=== PATIENT | male | born 1995 | race Caucasian/White ===

== ENCOUNTER 2016-07-05 10:15 | Inpatient (IN) ==
[2016-07-05] MEDS ORDERED: ONDANSETRON 4 MG/2 ML VIAL IV STA (10:29)
[2016-07-05] MEDS ORDERED: SODIUM CHLORIDE 0.9% 1,000 ML IV STA (10:29)
[2016-07-05] MEDS ORDERED: KETOROLAC 30 MG/1 ML VIAL IV STA (10:29)
--- NOTE | 2016-07-05 10:32 | Emergency Department Note ---
Jose Jama Meredith, am scribing for, and in the presence of, Steven Mendoza MD 10:29. Reji Jama Robert M, MD, personally performed the services described in this documentation, ascribed by Kristi Garcia in my presence, and it is both accurate and complete . Arrival - Arrival Chief Complaint: Abdominal / Flank Pain Stated Complaint: abdominal pain ED Nursing Triage Note: Brought in per EMS from home with c/o generalized abdominal pain onset 2 days ago. Describes as sharp. +nausea/vomiting. Last bowel movement 3 days ago. Mode of Arrival: Stretcher Limitations: No Limitations Source: Patient, RN Notes Reviewed - History of Present Illness HPI Narrative: Pt is a 20 y/o white male brought to the ED by EMS with c/o generalized abdominal pain for the past 2 days. He describes the pain as sharp. Pt confirms nausea and vomiting. His last bowel movement was 3 days ago. Pt has not history of abdominal surgeries. Onset (ago): day(s) Consistency: intermittent Quality: sharp Allergies/Adverse Reactions: Allergies Allergy/AdvReac Type Severity Reaction Status Date / Time No Known Allergies Allergy Verified 07/05/16 10:23 Home Medications: Home Medications Medication Instructions Recorded Confirmed Type No Known Home Medications [No 07/05/16 07/05/16 History Known Home Medications] Review of System - Review of System 12 point system: reviewed and no additional remarkable complaints except as stated - Review of System Gastrointestinal: Present: as per HPI, abdominal pain, nausea, vomiting, constipation Medical,Surgical,& Family Hx - Medical History Cardio: No history of: Hypertension - Surgical History Abdominal Surgeries: Patient denies: Abdominal Surgery - Family History Family History: Denies;: Additional Family History - Social History Smoking Status: Never smoker Frequency of Alcohol Use: None Type of Drug Use: None Exam Vital Signs: Vital Signs Temperature 96.8 F L 07/05/16 10:15 Pulse Rate 63 07/05/16 10:15 Respiratory Rate 18 07/05/16 10:15 Blood Pressure 152/88 07/05/16 10:15 O2 Sat by Pulse Oximetry 98 07/05/16 10:15 - General General appearance: alert, in no apparent distress - Head Head exam: Present: atraumatic, normocephalic - Eye Eye exam: Present: normal appearance, PERRL, EOMI - ENT ENT exam: Present: mucous membranes moist, normal external ear exam - Neck Neck exam: Present: full ROM, trachea midline. Absent: tenderness, meningismus , lymphadenopathy, thyromegaly - Chest Chest inspection: Present: symmetric chest wall rise. Absent: tenderness, rash - Respiratory Respiratory exam: Present: normal lung sounds bilaterally. Absent: respiratory distress - Cardiovascular Cardiovascular exam: Present: regular rate, normal rhythm, normal heart sounds. Absent: murmur, rubs, gallop - Abdominal Exam Abdominal exam: Present: soft, normal bowel sounds. Absent: distention, tenderness - Extremities Exam Extremities exam: Present: full ROM, normal capillary refill. Absent: tenderness, pedal edema, calf tenderness - Back Exam Back exam: Present: full ROM. Absent: tenderness - Neurological Exam Neurological exam: Present: alert, oriented X3, CN II-XII intact. Absent: motor sensory deficit - Psychiatric Psychiatric exam: Present: normal affect, normal mood - Skin Skin exam: Present: warm, dry, intact, normal color Course - Consultations Consultation #1: The hospitalist will evaluate and admit the patient. Time: 13:12 Results - Labs CBC & BMP: 07/05/16 10:46 07/05/16 10:46 Lab Results: I have reviewed the patients labs Labs: Laboratory Tests 07/05/16 10:46 WBC 7.4 RBC 5.02 Hgb 15.4 Hct 44.8 Plt Count 214 Neut % (Auto) 75.7 H Lymph % (Auto) 17.9 L Lymph # (Auto) 1.3 L Laboratory Tests 07/05/16 10:46 Sodium 146 H Potassium 3.4 L Chloride 110 H Carbon Dioxide 25 BUN 10 Creatinine 0.90 Glucose 123 H Laboratory Tests 07/05/16 11:05 Urine pH 6.0 Ur Specific [place] 1.024 Urine Urobilinogen < 2.0 H Urine WBC 9 Amorphous Crystals Few Urine Bacteria Occasional Urine Mucus Many Laboratory Tests 07/05/16 11:05 Urine Opiates Screen Negative Ur Barbiturates Screen Negative Ur Phencyclidine Scrn Negative U Amphetamine/Methamph Negative U Benzodiazepines Scrn Negative U Cocaine Metab Screen Negative U Cannabinoids Screen Negative - Diagnostic Findings Procedure: CT Abdomen and Pelvis: image reviewed by me (Periportal edema. Possible mild peripancreatic stranding about the head of the pancreas.) Disposition Clinical Impression: midepigastric abdominal pain Case discussed with: patient, patient's family Disposition: Still a Patient Condition: Stable Time of Disposition: 13:12
[2016-07-05 10:55] LABS: Basophils % 0.3 % (0.0-0.8); Eosinophils # 0.1 10*3/uL (0.0-0.87); Eosinophils % 0.8 % (0.00-10.9); Hematocrit 44.8 VOL% (42.0-52.0); Hemoglobin 15.4 GM/DL (14.0-18.0); Immature Granulocytes % 0.3 %; Immature Granulocytes Absolute 0.02 #; Lymphocytes # 1.3 10*3/uL (1.4-4.0); Lymphocytes % 17.9 % (21.2-54.2); Mean Corpuscular HGB Conc 34.4 GM/DL (32-36); Mean Corpuscular Hemoglobin 31 PG (27-34); Mean Corpuscular Volume 89.2 FL (87-102); Mean Platelet Volume 10.3 FL (9.6-12.0); Monocytes # 0.4 10*3/uL (0.11-0.8); Neutrophils # 5.6 10*3/uL (1.4-7.4); Neutrophils % 75.7 % (38.7-73.9); Platelet Count 214 T/CUMM (130-400); Red Blood Count 5.02 MC/CUMM (3.8-5.5); Red Cell Distribution Width 13.1 % (9.3-17.3); White Blood Count 7.4 T/CUMM (4-12)
[2016-07-05] MEDS ORDERED: KETOROLAC 30 MG/1 ML VIAL ONE (10:55)
[2016-07-05] MEDS ORDERED: ONDANSETRON 4 MG/2 ML VIAL ONE (10:55)
[2016-07-05 11:31] LABS: Amorphous Crystals,Urine Few /HPF (Few); Apearance,Urine CLOUDY (Clear); Bacteria,Urine Occasional /HPF (Few); Bilirubin,Urine Negative (Negative); Blood, Urine Negative (Negative); Glucose,Urine (UA) Negative (Negative); Ketones,Urine Negative (Negative); Mucus,Urine Many /LPF (Occasional); Nitrite,Urine Negative (Negative); Protein,Urine Negative; Urine Color Yellow (Yellow); Urine Specific Gravity 1.024 (1.001-1.035); Urine Urobilinogen < 2.0 EU/DL (0.2-1.0); WBC,Urine 9 /HPF (0-6)
[2016-07-05 11:32] LABS: Calcium 9.2 MG/DL (8.5-10.1); Magnesium 1.8 MG/DL (1.8-2.4); Osmolality,Calculated 289.6 MOS/KG (273-304); Potassium 3.4 MMOL/L (3.5-5.1)
[2016-07-05 11:38] LABS: Barbiturates Screen,Urine Negative (Negative); Benzodiazepines Screen,Urine Negative (Negative); Cannabinoid Screen,Urine Negative (Negative); Opiate Screen,Urine Negative (Negative); Phencyclidine Screen,Urine Negative (Negative)
[2016-07-05] MEDS ORDERED: ALUM/MAG/SIMETH/LIDO VISC 1:1 30 ML BOTTLE PO STA (11:57)
[2016-07-05] MEDS ORDERED: ALUM/MAG/SIMETH/LIDO VISC 1:1 30 ML BOTTLE PO ONE (12:07)
[2016-07-05] MEDS ORDERED: HYDROmorphone 2 MG/1 ML VIAL IV STA (13:11)
--- NOTE | 2016-07-05 13:13 | CT Report ---
Referring physician: Steven Mendoza EXAM: CT abdomen and pelvis with contrast DATE: July 05, 2016 COMPARISON: None REASON: Midepigastric abdominal pain TECHNIQUE: Axial images of the abdomen and pelvis were obtained after administration of 100 cc of Omnipaque 350 IV contrast. Coronal and sagittal reformatted images were also provided. Total DLP is 435.3 mGy*cm. FINDINGS: Lower thorax: The lung bases are clear. There mild pectus excavatum deformity at the anterior chest wall. ABDOMEN: Liver/gallbladder: There is periportal edema versus mild intrahepatic biliary duct dilatation. The common hepatic and common bile duct appear normal in size, but there is mild edema in the laura hepatis region. There may be minimal pericholecystic fluid. Pancreas: The pancreas is unremarkable as visualized. Of note, the edema in the laura hepatis region abuts the pancreatic head. This makes confirmation or exclusion of pancreatitis difficult. Spleen: Unremarkable. Adrenals: Unremarkable. Kidneys and ureters: No hydronephrosis or suspicious renal lesion is identified. The ureters are unremarkable as visualized. PELVIS: Bladder: The bladder wall is diffusely thickened. This could be secondary to poor distention or cystitis. Reproductive: Unremarkable as visualized. ABDOMEN AND PELVIS: Bowel: There are a few mildly prominent loops of small bowel within the mid abdomen and air-fluid levels at the small bowel. However, scattered air is seen within the colon. This could represent minimal ileus or gastroenteritis. Appendix: The appendix is unremarkable as visualized. Vasculature: The abdominal aorta is normal in size. Peritoneum/retroperitoneum: No free air is present. There is questionable trace free fluid within the pelvis. Lymph nodes: No suspicious adenopathy is seen. Abdominal/pelvic wall: Unremarkable. Bones: There are a few small scattered sclerotic densities at the pelvis and proximal right femur. There are nonspecific but likely represent bone islands. No acute osseous process is seen. IMPRESSION: 1. There is mild intrahepatic biliary duct dilatation versus periportal edema. This is especially prominent at the left hepatic lobe. The common bile duct and common hepatic duct appear normal in size, but there is edema in the laura hepatis region and questionable trace pericholecystic fluid. This could be related to a diffuse hepatic process such as hepatitis. A obstructing biliary process at the level of the biliary confluence is difficult to exclude. Evaluation for cholecystitis is also limited on this study. Further evaluation could be performed with a nuclear medicine biliary scan. 2. There are few minimally prominent loops of small bowel within the midabdomen and air-fluid levels at the small bowel. This could represent minimal ileus or gastroenteritis. 3. Questionable trace free fluid within the pelvis. 4. The bladder wall is diffusely thickened. This could be secondary to poor distention or cystitis. Findings were discussed with Dr. Mendoza on July 05, 2016 at 1:[address] exam was performed using one or more of the following dose reduction techniques: Automated exposure control and adjustment of the mA and/or kV according to patient size. PROCEDURE INTERPRETED AT [facility] DEPARTMENT OF RADIOLOGY Final Report Signed by: Dr. Gonsalo Tran
[2016-07-05] MEDS ORDERED: HYDROmorphone 2 MG/1 ML VIAL ONE (13:22)
[2016-07-05] MEDS ORDERED: LACTULOSE 20 GM/30 ML UDCUP PO PRN (13:23)
[2016-07-05] MEDS ORDERED: ZALEPLON 5 MG CAPSULE PO PRN (13:23)
[2016-07-05] MEDS ORDERED: ONDANSETRON 4 MG/2 ML VIAL IV PRN (13:23)
[2016-07-05] MEDS ORDERED: ACETAMINOPHEN 325 MG TABLET PO PRN (13:23)
[2016-07-05 13:45] LABS: Risk Ratio 2.02; VLDL CHOLESTEROL 12.4 MG/DL
--- NOTE | 2016-07-05 14:29 | Hospitalist History & Physical ---
Assessment and Plan - Time spent with patient Time spent with patient: Greater than 30 minutes (1) Abdominal pain Status: Acute Assessment and plan: admit and monitor hydrate well amylase and lipase are not impressive for pancreatitis Lipid panel done, normal urine clear and WBC normal afebrile and hemodynamically stable Consult GI to see him and evaluate CT findings DVT prophylaxis PRN meds routine labs in AM further plan and addendum to follow per Dr. Krishna Current Visit: Yes History of Present Illness Chief complaint: abdominal pain History of present illness: Mr. Suarez is a 20 year old male who presents to the ER today with middle abdominal/epigastric pain. He states he had pain in his ribs yesterday, but he had slept on the floor and figured that was the cause. He states he went to bed and the pain was not there but this morning it woke up him with sharp severe cramps. He states the pain was constant and only resolved with the pain meds he received in the ER. He has vomited when he tries to eat, had diarrhea several times day before yesterday. Denies chest pain, shortness of breath, fever, chills, dysuria or edema. He denies a PMH or PSH. He does not smoke but dips skoal, one can a day. He drinks occasionally, he states prob once a month at most. He denies daily alcohol use or drug use. Home Medications Medication Instructions Recorded Confirmed Type No Known Home Medications [No 07/05/16 07/05/16 History Known Home Medications] Allergies Allergy/AdvReac Type Severity Reaction Status Date / Time No Known Allergies Allergy Verified 07/05/16 10:23 Medical,Surgical,& Family Hx - Medical History Cardio: No history of: Hypertension - Surgical History Abdominal Surgeries: Patient denies: Abdominal Surgery - Family History Family History: Denies;: Additional Family History - Social History Smoking Status: Never smoker Frequency of Alcohol Use: None Type of Drug Use: None 12 point system: reviewed and no additional remarkable complaints except as stated Exam - Constitutional Vitals: Period Temp Pulse Resp BP Sys/Angel Pulse Ox Last 24 Hr 59 18 136/84 98 General appearance: no acute distress - Head Head exam: Present: normal inspection, normocephalic - Eye Eye exam: Present: EOMI. Absent: scleral icterus Pupils: Present: LUIS MANUEL, normal accommodation - ENT ENT exam: Present: normal exam, normal oropharynx - Neck Neck exam: Present: normal inspection. Absent: lymphadenopathy - Respiratory Respiratory exam: Present: clear to auscultation bilaterally. Absent: wheezes - Cardiovascular Cardiovascular exam: Present: regular rate and rhythm. Absent: tachycardia - GI/Abdominal GI/Abdominal exam: Present: normal bowel sounds, soft. Absent: tenderness - Extremities Exam Extremities exam: Present: normal inspection, full ROM. Absent: edema - Back Exam Back exam: Present: normal inspection. Absent: muscle spasm - Neurological Exam Neurological exam: Present: alert, oriented X3 - Psychiatric Psychiatric exam: Present: normal affect, normal mood - Skin Skin exam: Present: normal color, warm, dry Results - Labs CBC & BMP: 07/05/16 10:46 07/05/16 10:46 Lab Results: I have reviewed the past 24 hour labs - Diagnostic Findings Procedure: CT Abdomen and Pelvis: report reviewed by me (CT findings reviewed, please see report)
[2016-07-05] MEDS ORDERED: INFLUENZA VIRUS VACCINE 0.5 ML SYRINGE IM ONE (15:08)
--- NOTE | 2016-07-05 15:46 | Gastrointestinal Consult Note ---
Assessment and Plan (1) Abdominal pain Status: Acute Assessment and plan: 07/05-One day history of upper abdominal pain, severe, sharp and stabbing in nature with one episode of nausea/vomiting. CT of abdomen with contrast with findings of mild intrahepatic biliary duct dilation vs periportal edmea, prominent at left hepatic lobe, normal CBD and hepatic duct, edema in laura hepatis and questionable pericholecystic fluid. Difficulty to exclude obstructing biliary process. Few prominent loops of small bowel. Obtain Hepatitis panel, LFTs, abd US. Plan and addendum to follow by Dr Robles. Current Visit: Yes History of Present Illness Chief complaint: Abdominal pain History of present illness: Mr. Suarez is a 20 year old male who presented to the hospital with sudden onset of of abdominal pain. Pt states that on yesterday when he woke up he had onset of pain in his ribcage. He states that he felt that this was related to sleeping on the floor the night before however as the day progressed the pain moved down into his abdomen. He states that the pain initially was a mild cramping, aching pain. He took a hot shower and this helped the pain some and went to bed. He was awakened this morning with sharp, stabbing cramping pains in his mid abdomen. He states it radiates across his abdomen but not to his back. He had one episode of vomiting when he tried to hold pressure on the pain , stating he vomited up what he had just eaten. No reports of hematemesis or coffee ground emesis. He denies any changes in his bowels. States that he has had no recent illnesses, fever, chills or night sweats. He has lost 10 pds in the last month but states he has been trying to lose weight by cutting back on his intake. He denies drug use and only drinks socially on occasion. He reports he does dip Skoal but does not smoke. Has not traveled outside of the country and denies any tattoos. Denies any prior endoscopy, abdominal surgeries. Reports his mother had her gallbladder taken out in the past. Home Medications Medication Instructions Recorded Confirmed Type No Known Home Medications [No 07/05/16 07/05/16 History Known Home Medications] Allergies Allergy/AdvReac Type Severity Reaction Status Date / Time No Known Allergies Allergy Verified 07/05/16 10:23 Medical,Surgical,& Family Hx - Medical History Cardio: No history of: Hypertension - Surgical History Abdominal Surgeries: Patient denies: Abdominal Surgery - Family History Family History: Reports;: Family Cancer (Aunt X2 (leukemia)), Family Diabetes ( Multiple family), Family Hypertension (Multiple family) Denies;: Additional Family History - Social History Smoking Status: Never smoker Frequency of Alcohol Use: None Type of Drug Use: None 12 point system: reviewed and no additional remarkable complaints except as stated - Constitutional Constitutional: Present: as per HPI, weight loss (warranted-diet modification) - EENT Eyes: Present: as per HPI Ears: Present: as per HPI Nose, mouth and throat: Present: as per HPI - Cardiovascular Cardiovascular: Present: as per HPI - Respiratory Respiratory: Present: as per HPI - Gastrointestinal Gastrointestinal: Present: as per HPI, abdominal pain, nausea, vomiting - Genitourinary Genitourinary: Present: as per HPI - Musculoskeletal Musculoskeletal: Present: as per HPI - Neurological Neurological: Present: as per HPI - Psychiatric Psychiatric: Present: as per HPI - Endocrine Endocrine: Present: as per HPI - Hematologic/Lymphatic Hematologic/Lymphatic: Present: as per HPI Exam - Constitutional Vitals: Period Temp Pulse Resp BP Sys/Angel Pulse Ox Last 24 Hr 97.9 F 59-61 18-18 136-145/84-92 98-99 General appearance: normal weight, no acute distress - Head Head exam: Present: normal inspection, normocephalic - Eye Eye exam: Present: other (lids and conjunctiva unremarkable). Absent: scleral icterus - ENT ENT exam: Present: normal exam, normal oropharynx - Neck Neck exam: Present: normal inspection - Respiratory Respiratory exam: Present: clear to auscultation bilaterally. Absent: rales, rhonchi, wheezes - Cardiovascular Cardiovascular exam: Present: regular rate and rhythm. Absent: diastolic murmur , JVD, systolic murmur - GI/Abdominal GI/Abdominal exam: Present: normal bowel sounds, tenderness, soft. Absent: ascites, distended, mass, organomegaly - Extremities Exam Extremities exam: Present: normal inspection, full ROM - Back Exam Back exam: Present: normal inspection - Neurological Exam Neurological exam: Present: alert, oriented X3 - Psychiatric Psychiatric exam: Present: normal affect, normal mood - Skin Skin exam: Present: normal color, warm, dry Results - Labs CBC & BMP: 07/05/16 10:46 07/05/16 10:46 Lab Results: I have reviewed the past 24 hour labs - Diagnostic Findings Procedure: CT Abdomen and Pelvis: report reviewed by me
[2016-07-05] MEDS: SODIUM CHLORIDE 0.9% 1,000 ML IV SCH ×2 (15:52→22:44)
[2016-07-05 17:45] LABS: Albumin 3.9 G/DL (3.4-5.0); Bilirubin,Direct 0.1 MG/DL (0.0-0.20); Bilirubin,Indirect 0.3 MG/DL (0.0-1.0); Bilirubin,Total 0.4 MG/DL (0.2-1.0); Total Protein 6.7 G/DL (6.4-8.3)
[2016-07-05 18:37] LABS: Hepatitis A Ab IgM Quant 0.08 Index; Hepatitis A Ab IgM Result Negative (Negative); Hepatitis B Core IgM Quant 0.19 Index; Hepatitis B Core IgM Result Negative (Negative); Hepatitis B Surface Ag Quant < 0.10 Index; Hepatitis B Surface Ag Result Negative (Negative); Hepatitis C Virus Ab Quant 0.06 Index; Hepatitis C Virus Ab Result Negative (Negative)
[2016-07-05] MEDS: MORPHINE 2 MG/1 ML SYRINGE IV PRN (22:36)
[2016-07-06] MEDS ORDERED: MORPHINE 2 MG/1 ML SYRINGE IV ONE
[2016-07-06] MEDS: MORPHINE 2 MG/1 ML SYRINGE IV PRN (02:16)
[2016-07-06 05:43] LABS: Basophils % 0.5 % (0.0-0.8); Eosinophils # 0.2 10*3/uL (0.0-0.87); Eosinophils % 2.3 % (0.00-10.9); Hematocrit 40.9 VOL% (42.0-52.0); Hemoglobin 13.5 GM/DL (14.0-18.0); Immature Granulocytes % 0.3 %; Immature Granulocytes Absolute 0.03 #; Lymphocytes # 3.1 10*3/uL (1.4-4.0); Lymphocytes % 35.6 % (21.2-54.2); Mean Corpuscular Hemoglobin 30 PG (27-34); Mean Corpuscular Volume 91.7 FL (87-102); Mean Platelet Volume 10.6 FL (9.6-12.0); Monocytes # 0.6 10*3/uL (0.11-0.8); Monocytes % 7.3 % (1.7-12.7); Neutrophils # 4.7 10*3/uL (1.4-7.4); Platelet Count 204 T/CUMM (130-400); Red Blood Count 4.46 MC/CUMM (3.8-5.5); Red Cell Distribution Width 13.2 % (9.3-17.3); White Blood Count 8.6 T/CUMM (4-12)
[2016-07-06 06:12] LABS: Alanine Aminotransferase 17 U/L (16-61); Albumin 3.5 G/DL (3.4-5.0); Alkaline Phosphatase 69 U/L (45-117); Aspartate Amino Transferase 14 U/L (0-37); Bilirubin,Total < 0.39 MG/DL (0.2-1.0); Calcium 8.6 MG/DL (8.5-10.1)
[2016-07-06 06:13] LABS: Blood Urea Nitrogen 7 MG/DL (7-18); Glucose 95 MG/DL (74-106); Osmolality,Calculated 289.4 MOS/KG (273-304); Potassium 4.2 MMOL/L (3.5-5.1); Sodium 147 MMOL/L (136-145)
[2016-07-06] MEDS: SODIUM CHLORIDE 0.9% 1,000 ML IV SCH ×3 (06:15→17:05)
--- NOTE | 2016-07-06 08:21 | Ultrasound Report ---
Referring Physician: Junior Robles Exam: US abdomen limited Date: July 06, 2016 Reason: Abnormal CT of the liver with pericholecystic fluid Comparison: CT abdomen and pelvis July 05, 2016 Technique: Grayscale ultrasound images of the right upper abdomen were obtained. Ultrasound images were captured and stored. Findings: The liver measures 13.1 cm in length. No focal suspicious hepatic lesion is identified. A single small stone is seen within the gallbladder. There is minimal pericholecystic fluid but no significant gallbladder wall thickening. The air control electronics operator also reports a positive sonographic Hung's sign, which raises the possibility of acute cholecystitis. The common bile duct is upper normal in size, measuring 0.5 cm in diameter. The visualized pancreas is unremarkable. The right kidney measures 11.4 x 5.2 x 3.8 cm. No right hydronephrosis or suspicious renal lesion is identified. No significant ascites is seen. Impression: 1. A single small gallstone is identified, and there is minimal pericholecystic fluid. The air control electronics operator also reports a positive sonographic Hung's sign, and these findings raise the possibility of acute cholecystitis. Confirmation could be performed with a nuclear medicine biliary scan. 2. The common bile duct is upper normal in size, measuring 0.5 cm in diameter. Please correlate with liver function studies given the patient's age. Findings were discussed with Dr. Olmos on July 06, 2016 at 8:18 AM. This is a critical test. PROCEDURE INTERPRETED AT [facility] DEPARTMENT OF RADIOLOGY Final Report Signed by: Dr. Gonsalo Tran
[2016-07-06] MEDS: PANTOPRAZOLE 40 MG TABLET PO SCH (08:27)
--- NOTE | 2016-07-06 09:36 | Gastrointestinal Progress Note ---
Assessment and Plan (1) Abdominal pain Status: Acute Assessment and plan: 07/06-Pain improved today. US noted with single small gallstone, minimal pericholecystic fluid, positive Lane sign, CBD 5mm. Normal LFTs, negative Hepatitis panel. HIDA scan ordered. Plan and addendum to follow by Dr Sanz. 07/05-One day history of upper abdominal pain, severe, sharp and stabbing in nature with one episode of nausea/vomiting. CT of abdomen with contrast with findings of mild intrahepatic biliary duct dilation vs periportal edmea, prominent at left hepatic lobe, normal CBD and hepatic duct, edema in laura hepatis and questionable pericholecystic fluid. Difficulty to exclude obstructing biliary process. Few prominent loops of small bowel. Obtain Hepatitis panel, LFTs, abd US. Plan and addendum to follow by Dr Robles. Current Visit: Yes Gastroenterology - PN: Subj Interval history: CC: Abdominal pain Pt is seen, awake, alert. States that he is feeling some better today following analgesic. He denies any nausea, vomiting. He is afebrile. Abdomen is soft, nontender. US results noted and HIDA scan has been ordered. LFTs unremarkable. ROS: Denies SOB or chest pain Exam (Progress Note) - Constitutional Vitals: Period Temp Pulse Resp BP Sys/Angel Pulse Ox Last 24 Hr 97.8 F-98.6 F 54-98 17-19 127-176/76-92 96-99 General appearance: normal weight, no acute distress - Head Head exam: Present: normal inspection, normocephalic - Eye Eye exam: Present: other (lids and conjunctiva remarkable). Absent: scleral icterus - ENT ENT exam: Present: normal exam, normal oropharynx - Neck Neck exam: Present: normal inspection - Respiratory Respiratory exam: Present: clear to auscultation bilaterally. Absent: rales, rhonchi, wheezes - Cardiovascular Cardiovascular exam: Present: regular rate and rhythm. Absent: diastolic murmur , JVD, systolic murmur - GI/Abdominal GI/Abdominal exam: Present: normal bowel sounds, soft. Absent: ascites, distended, mass, organomegaly, tenderness - Extremities Exam Extremities exam: Present: normal inspection, full ROM - Back Exam Back exam: Present: normal inspection - Neurological Exam Neurological exam: Present: alert, oriented X3 - Psychiatric Psychiatric exam: Present: normal affect, normal mood - Skin Skin exam: Present: normal color, warm, dry Results - Labs CBC & BMP: 07/06/16 05:04 07/06/16 05:04 Lab Results: I have reviewed the past 24 hour labs - Diagnostic Findings Procedure: CT Abdomen and Pelvis: report reviewed by me, Ultrasound: report reviewed by me
--- NOTE | 2016-07-06 14:00 | Nuclear Medicine Report ---
Nuclear medicine hepatobiliary scan Indication: Abdominal pain Findings: The patient was injected with 5.0 mCi of 90 9M technetium Choletec intravenously. There is prompt hepatic uptake and excretion into the biliary system. Gallbladder fills normally. The patient was given 8 oz. of Ensure. Gallbladder ejection fraction is estimated at 45 %. Impression: Normal nuclear medicine hepatobiliary scan. PROCEDURE INTERPRETED AT [facility] DEPARTMENT OF RADIOLOGY Final Report Signed by: Dr. Layo Issa
--- NOTE | 2016-07-06 16:41 | General Surgery Consult Note ---
Assessment and Plan (1) Abdominal pain Status: Acute Assessment and plan: Impression: Epigastric and right upper quadrant pain Plan: I reviewed his workup thus far. It is fairly extensive. His lab work is relatively normal including LFTs, lipase and hepatitis panel. Ultrasound shows small stone and some pericholecystic fluid. HIDA scan was normal but he did have slightly worsening symptoms during the study. I reviewed the CT images and report. He has some periportal edema of unknown significance. In addition the gallbladder was described as minimally thickened but it looks fairly thickened to me. There is some pericholecystic fluid. There also appears to be a couple of small dots of air near the bottom of the gallbladder close to the neck. There are a few loops of small bowel that may be mildly dilated but are not in the area of his pain. With no other obvious cause of his abdominal pain, I think it is reasonable to proceed with diagnostic laparoscopy and possible cholecystectomy. I'll discuss this further with him tomorrow including the possibility that his pain would not be relieved after the procedure. He is okay to eat today and will be nothing by mouth at midnight. Current Visit: Yes History of Present Illness Chief complaint: abdominal pain History of present illness: Mr. Suarez is a 20 year old male with a 2 day history of midepigastric abdominal pain. He describes the pain as constant and feels like a knife is stabbing him just under his rib cage on the right side just off of midline. He states it really hasn't improved since it started. He's had one episode of vomiting before coming to the hospital.. He's hungry. He's had no dysuria or any change in his bowel habits. States she's otherwise healthy. He has no history of IV drug use. He denies chest pain and shortness of breath. He is otherwise a thin, healthy appearing individual who is fairly active. He has no complaints of dysphagia, hematemesis, blood in his stool. Other than his abdominal pain he has no other complaints. Home Medications Medication Instructions Recorded Confirmed Type No Known Home Medications [No 07/05/16 07/05/16 History Known Home Medications] Allergies Allergy/AdvReac Type Severity Reaction Status Date / Time No Known Allergies Allergy Verified 07/05/16 10:23 Medical,Surgical,& Family Hx - Medical History Medical History: noncontributory Cardio: No history of: Hypertension - Surgical History Abdominal Surgeries: Patient denies: Abdominal Surgery - Family History Family History: Reports;: Family Cancer (Aunt X2 (leukemia)), Family Diabetes ( Multiple family), Family Hypertension (Multiple family) Denies;: Additional Family History - Social History Smoking Status: Never smoker Frequency of Alcohol Use: None Type of Drug Use: None 12 point system: reviewed and no additional remarkable complaints except as stated Exam - Constitutional Vitals: Period Temp Pulse Resp BP Sys/Angel Pulse Ox Last 24 Hr 97.8 F-98.6 F 54-98 17-19 127-160/75-82 96-100 General appearance: no acute distress - ENT Mouth exam: Present: normal external inspection - Neck Neck exam: Present: normal inspection - Respiratory Respiratory exam: Present: clear to auscultation bilaterally - Cardiovascular Cardiovascular exam: Present: RRR - GI/Abdominal GI/Abdominal exam: Present: soft (tender to palpation in the epigastric and right upper quadrant just to the right of midline) - Extremities Exam Extremities exam: Present: normal inspection - Back Exam Back exam: Present: normal inspection - Neurological Exam Neurological exam: Present: alert, oriented X3 Speech: Present: normal - Skin Skin exam: Present: normal color Results - Labs CBC & BMP: 07/06/16 05:04 07/06/16 05:04 Lab Results: I have reviewed the past 24 hour labs
[2016-07-06] MEDS: PIPERACILLIN/TAZOBACTAM 3,375 MG in SODIUM CHLORIDE 0.9% 100 ML IV SCH (16:57)
--- NOTE | 2016-07-06 17:09 | Hospitalist Progress Note ---
Assessment and Plan - Time spent with patient Time spent with patient: Greater than 30 minutes (1) Abdominal pain Status: Acute Assessment and plan: Abnormal CT with non specific findings and normal HIDA. Surgery planning cholecystectomy. Current Visit: Yes Hospitalist: Subjective Interval history: No complaints, no overnight events. Exam - Constitutional Vitals: Period Temp Pulse Resp BP Sys/Angel Pulse Ox Last 24 Hr 97.8 F-98.6 F 54-98 17-19 127-160/75-82 96-100 General appearance: no acute distress - Head Head exam: Present: normocephalic, atraumatic - Eye Eye exam: Present: EOMI Pupils: Present: LUIS MANUEL - ENT ENT exam: Present: normal exam - Neck Neck exam: Present: normal inspection - Respiratory Respiratory exam: Present: clear to auscultation bilaterally. Absent: rhonchi, wheezes - Cardiovascular Cardiovascular exam: Present: regular rate and rhythm. Absent: gallop, rubs, systolic murmur - GI/Abdominal GI/Abdominal exam: Present: normal bowel sounds, soft. Absent: distended, firm , guarding, tenderness, rebound - Extremities Exam Extremities exam: Present: normal inspection. Absent: calf tenderness, edema Results - Labs CBC & BMP: 07/06/16 05:04 07/06/16 05:04 Lab Results: I have reviewed the past 24 hour labs
[2016-07-07] MEDS: SODIUM CHLORIDE 0.9% 1,000 ML IV SCH ×4 (01:34→22:47)
[2016-07-07] MEDS: PIPERACILLIN/TAZOBACTAM 3,375 MG in SODIUM CHLORIDE 0.9% 100 ML IV SCH ×3 (01:50→16:59)
[2016-07-07 05:25] LABS: Basophils # 0.1 10*3/uL (0.0-0.2); Basophils % 0.7 % (0.0-0.8); Eosinophils # 0.3 10*3/uL (0.0-0.87); Eosinophils % 2.7 % (0.00-10.9); Hematocrit 41.9 VOL% (42.0-52.0); Hemoglobin 14.3 GM/DL (14.0-18.0); Immature Granulocytes % 0.2 %; Immature Granulocytes Absolute 0.02 #; Lymphocytes % 32.7 % (21.2-54.2); Mean Corpuscular HGB Conc 34.1 GM/DL (32-36); Mean Corpuscular Hemoglobin 30 PG (27-34); Mean Corpuscular Volume 88.6 FL (87-102); Mean Platelet Volume 10.6 FL (9.6-12.0); Monocytes # 0.6 10*3/uL (0.11-0.8); Monocytes % 6.9 % (1.7-12.7); Neutrophils # 5.2 10*3/uL (1.4-7.4); Neutrophils % 56.8 % (38.7-73.9); Platelet Count 239 T/CUMM (130-400); Red Blood Count 4.73 MC/CUMM (3.8-5.5); White Blood Count 9.2 T/CUMM (4-12)
[2016-07-07 05:56] LABS: Calcium 8.6 MG/DL (8.5-10.1); Osmolality,Calculated 285.7 MOS/KG (273-304)
--- NOTE | 2016-07-07 07:17 | General Surgery Progress Note ---
Assessment and Plan (1) Abdominal pain Status: Acute Assessment and plan: Impression: Epigastric and right upper quadrant pain Plan: Patient has improved overnight. Unsure if this was due to initiation of antibiotics or not. He would like to avoid surgery if possible. With no clear- cut evidence of cholecystitis I think that is reasonable. Recommend continuing antibiotics today and if he is doing well discharge home on antibiotics like Cipro and Flagyl either this evening or tomorrow depending on how he feels. Current Visit: Yes Subjective Patient reports: Present: feels better Narrative: Patient was started on antibiotics yesterday for possible acute cholecystitis. He says he feels much better today. When I entered the room he was sleeping well. He tolerated his diet yesterday. Overall he says he feels much better. Exam - Constitutional Vitals: Period Temp Pulse Resp BP Sys/Angel Pulse Ox Last 24 Hr 97.8 F-98.5 F 55-91 17-20 120-142/71-82 98-100 General appearance: no acute distress - Head Head exam: Present: normocephalic - Neck Neck exam: Present: normal inspection - Respiratory Respiratory exam: Present: clear to auscultation bilaterally - Cardiovascular Cardiovascular exam: Present: RRR - GI/Abdominal GI/Abdominal exam: Present: soft (less tender to palpation, nondistended) - Extremities Exam Extremities exam: Present: normal inspection - Back Exam Back exam: Present: normal inspection - Neurological Exam Neurological exam: Present: alert, oriented X3 Speech: Present: normal - Skin Skin exam: Present: normal color Results - Labs CBC & BMP: 07/07/16 04:29 07/07/16 04:29 Lab Results: I have reviewed the past 24 hour labs
[2016-07-07] MEDS: PANTOPRAZOLE 40 MG TABLET PO SCH (09:14)
--- NOTE | 2016-07-07 09:46 | Gastrointestinal Progress Note ---
Assessment and Plan (1) Abdominal pain Status: Acute Assessment and plan: 07/07-Abd pain improved, tolerating diet. HIDA scan results normal. No plans for cholecystectomy at present. Plan and addendum to follow by DR Robles. 07/06-Pain improved today. US noted with single small gallstone, minimal pericholecystic fluid, positive [place] sign, CBD 5mm. Normal LFTs, negative Hepatitis panel. HIDA scan ordered. Plan and addendum to follow by Dr Robles. 07/05-One day history of upper abdominal pain, severe, sharp and stabbing in nature with one episode of nausea/vomiting. CT of abdomen with contrast with findings of mild intrahepatic biliary duct dilation vs periportal edmea, prominent at left hepatic lobe, normal CBD and hepatic duct, edema in laura hepatis and questionable pericholecystic fluid. Difficulty to exclude obstructing biliary process. Few prominent loops of small bowel. Obtain Hepatitis panel, LFTs, abd US. Plan and addendum to follow by Dr Robles. Current Visit: Yes Gastroenterology - PN: Subj Interval history: CC: Abd pain Pt is awake, alert sitting up in bed. States he is feeling better at this time. States that he is requiring pain medication a couple of times a day at present. He is tolerating his diet well. Denies any nausea or vomiting. He does feel like his pain is improved since starting the antibiotics. He is afebrile. WBC normal. Abdomen is soft, nontender. He is wishing to avoid surgery at this time. ROS: Denies SOB or chest pain Exam (Progress Note) - Constitutional Vitals: Period Temp Pulse Resp BP Sys/Angel Pulse Ox Last 24 Hr 97.6 F-98.5 F 55-91 17-20 120-142/71-82 98-100 - Other Additional findings: General appearance: normal weight, no acute distress - Head Head exam: Present: normal inspection, normocephalic - Eye Eye exam: Present: other (lids and conjunctiva remarkable). Absent: scleral icterus - ENT ENT exam: Present: normal exam, normal oropharynx - Neck Neck exam: Present: normal inspection - Respiratory Respiratory exam: Present: clear to auscultation bilaterally. Absent: rales, rhonchi, wheezes - Cardiovascular Cardiovascular exam: Present: regular rate and rhythm. Absent: diastolic murmur , JVD, systolic murmur - GI/Abdominal GI/Abdominal exam: Present: normal bowel sounds, soft. Absent: ascites, distended, mass, organomegaly, tenderness - Extremities Exam Extremities exam: Present: normal inspection, full ROM - Back Exam Back exam: Present: normal inspection - Neurological Exam Neurological exam: Present: alert, oriented X3 - Psychiatric Psychiatric exam: Present: normal affect, normal mood - Skin Skin exam: Present: normal color, warm, dry Results - Labs CBC & BMP: 07/07/16 04:29 07/07/16 04:29 Lab Results: I have reviewed the past 24 hour labs
--- NOTE | 2016-07-07 16:54 | Hospitalist Progress Note ---
Assessment and Plan (1) Abdominal pain Status: Acute Assessment and plan: Significantly improved since Zosyn was initiated Febrile, normal WBC HIDA scan is negative GI and Surgery are following Patient does not wish to have surgery at this point Continue antibiotic treatment Likely will DC tomorrow morning if symptoms continue to improve on Cipro 500 mg twice daily Current Visit: Yes Hospitalist: Subjective Interval history: Chief complaint: abdominal pain History of present illness: Mr. Suarez is a 20 year old male who presents to the ER today with middle abdominal/epigastric pain. Patient was admitted for sharp right upper quadrant abdominal pain accompanied by nausea and vomiting. Patient was admitted to the hospital for possible acute cholecystitis. GI and surgery were consulted. Patient had abdominal CT which revealed intrahepatic biliary duct dilation versus perihepatic edema. Was recommended HIDA scan but scan was normal. Patient started on treatment with IV on the antibiotics. We will still have lap cholecystectomy today by surgery apparently his symptoms significantly better since he started on abx. [place]: Alert and oriented. No distress noted. He still complains of occasional right upper quadrant abdominal pain that much better than yesterday. He is afebrile vital signs stable. He ate regular food, rate well. He denies nausea vomiting Exam - Constitutional Vitals: Period Temp Pulse Resp BP Sys/Angel Pulse Ox Last 24 Hr 97.6 F-98.3 F 60-77 18-20 120-142/55-78 94-100 General appearance: normal weight, no acute distress - Head Head exam: Present: normal inspection, normocephalic, atraumatic - Eye Eye exam: Present: EOMI Pupils: Present: LUIS MANUEL - ENT ENT exam: Present: normal exam - Neck Neck exam: Present: normal inspection - Respiratory Respiratory exam: Present: clear to auscultation bilaterally - Cardiovascular Cardiovascular exam: Present: regular rate and rhythm - GI/Abdominal GI/Abdominal exam: Present: other (Tender on palpation in the midabdomen ) - Extremities Exam Extremities exam: Present: normal inspection, normal capillary refill - Back Exam Back exam: Present: normal inspection - Neurological Exam Neurological exam: Present: alert, oriented X3, normal gait - Psychiatric Psychiatric exam: Present: normal affect, normal mood - Skin Skin exam: Present: normal color, warm Results - Labs CBC & BMP: 07/07/16 04:29 07/07/16 04:29
[2016-07-08] MEDS: PIPERACILLIN/TAZOBACTAM 3,375 MG in SODIUM CHLORIDE 0.9% 100 ML IV SCH ×2 (00:46→10:04)
[2016-07-08] MEDS: SODIUM CHLORIDE 0.9% 1,000 ML IV SCH (07:20)
[2016-07-08] MEDS: PANTOPRAZOLE 40 MG TABLET PO SCH (10:03)
--- NOTE | 2016-07-08 10:23 | General Surgery Progress Note ---
Assessment and Plan - Time spent with patient Time spent with patient: Less than 30 minutes (1) Abdominal pain Status: Acute Assessment and plan: 07/08/16 pt feels much better this am. tolerating a diet. wants to go home. AFVSS , abd soft nt. AP--ok for dc as far as dr hogan is concerned. recommend home on cipro and flagyl for 1wk. follow up prn if further abdominal pain. discussed w pt and family in room. Current Visit: Yes Exam - Constitutional Vitals: Period Temp Pulse Resp BP Sys/Angel Pulse Ox Last 24 Hr 98.0 F-98.2 F 64-78 18-19 130-140/55-82 94-98 Results - Labs CBC & BMP: 07/07/16 04:29 07/07/16 04:29 Specialty Discharge - Follow Up or Referrals Follow up with: Michael Hogan MD [Physician] - (prn)
--- NOTE | 2016-07-08 11:32 | Discharge Summary ---
Hospital Course - Hospital Course Hospital Course: Mr. Suarez is a 20 year old male who presents to the ER with middle abdominal/ epigastric pain. Patient was admitted for sharp right upper quadrant abdominal pain accompanied by nausea and vomiting. Patient was admitted to the hospital for possible acute cholecystitis. GI and surgery were consulted. Patient had abdominal CT which revealed intrahepatic biliary duct dilation versus perihepatic edema. Was recommended HIDA scan but scan was normal. Patient started on treatment with IV on the antibiotics. We was scheduled to have a lap cholecystectomy yesterday by surgery apparently his symptoms significantly improved since he started on abx. GI and surgery are recs- patient to continue antibiotic treatment with ciprofloxacin or Flagyl and come back to the hospital if his symptoms recur. Today he is alert and oriented. He denies any abdominal pains. He denies nausea vomiting. He had a regular dinner last night , breakfast and lunch this morning tolerates well. He will be discharged this afternoon with prescription for ciprofloxacin for 7 days. Diagnosis - Discharge Diagnosis (1) Abdominal pain Status: Acute Specialty Discharge - Follow Up or Referrals Follow up with: Michael Damon MD [Physician] - (prn) Discharge Plan - Discharge Data Disposition: Disch To Home/Self Care Condition at Discharge: Stable Discharge Diet: advance to your usual diet Activity: resume usual activities as tolerated Hygiene: no restrictions Weight Bearing at Discharge: full weight bearing Driving: no restrictions Contact your physician if you experience:: fever over 101, Nausea/Vomiting, pain uncontrolled by pain medications - Discharge Medications Continue Ciprofloxacin Tab [Cipro Tab] 500 mg PO BID #14 tablet - Follow Up or Referral Follow Up: Michael Damon MD [Physician] - (prn) - Forms/Instructions Exam - Constitutional Vitals: Period Temp Pulse Resp BP Sys/Angel Pulse Ox Last 24 Hr 98.0 F-98.2 F 64-78 18-19 130-140/55-82 94-98 General appearance: normal weight, no acute distress, mild distress - Head Head exam: Present: normal inspection - Eye Eye exam: Present: EOMI Pupils: Present: LUIS MANUEL - ENT ENT exam: Present: normal exam - Neck Neck exam: Present: normal inspection - Respiratory Respiratory exam: Present: clear to auscultation bilaterally - Cardiovascular Cardiovascular exam: Present: regular rate and rhythm - GI/Abdominal GI/Abdominal exam: Present: normal bowel sounds, soft - Extremities Exam Extremities exam: Present: normal inspection - Back Exam Back exam: Present: normal inspection - Neurological Exam Neurological exam: Present: alert, oriented X3, normal gait - Psychiatric Psychiatric exam: Present: normal affect, normal mood - Skin Skin exam: Present: normal color, warm DS: Provider Date of admission: 07/05/16 13:23 Primary care physician: . No PCP Attending physician on admission: Nova Krishna MD Consults: 07/05/16 13:29 Consult to Pharmacy [CONS] Routine Reason for Pharmacy Consult: Adjust Meds Renal Funct 07/05/16 15:11 Consult to Dietitian [CONS] Routine Reason for Dietitian: Dietary Consult 07/06/16 14:35 Consult to Physician [CONS] Routine Comment: cholelithiasis, abd pain Consulting Provider: Michael Damon Consulting Provider Notified: Yes When should Consulting Provider be notified: Now Person Notified: jimi becker Date Notified: 07/06/16 Time Notified: 14:43 Discharging clinician: Valerie Da Silva MD Expected date of discharge: 07/08/16
--- NOTE | 2016-07-08 13:30 | Physician Query Form ---
CLICK EDIT DOCUMENT TO SELECT QUERY ANSWER --> OK --> SIGN Christiana Mendoza RN, CCDS Certified Clinical Director Operating Room W) [phone] (f) [phone] [email or web address] PROVIDERS: Make your selection(s) from the choices in EACH section by typing an "x" and enter comments in the comment section. Please use your independent medical judgment in providing your response. This request does not imply that any particular answer is desired or expected. CLINICAL INDICATORS: (Providers should not edit this section) The below diagnosis was documented in the record, but is not consistently noted in subsequent documentation. The medical record indicates that the patient was admitted with abdominal/ epigastric pain, accompanied by nausea/ vomiting, possible acute cholecystitis, "CT which revealed intrahepatic biliary duct dilation versus perihepatic edema" , "HIDA scan but scan was normal" and the "patient to continue antibiotic treatment with ciprofloxacin or Flagyl". In your clinical opinion can you please clarify if the Possible acute cholecystitis was ? Diagnosis: Possible acute cholecystitis Please clarify the following: ( x) The above diagnosis was monitored, evaluated, and/or treated and is a confirmed diagnosis ( ) The above diagnosis was ruled out ( ) The above diagnosis is still a likely, suspected, probable diagnosis ( ) Other, please specify: ( ) Clinically unable to determine COMMENTS: Use of terms such as suspected, likely, or probable (associated with a specific diagnosis that is being evaluated, monitored, or treated as if it exists) are acceptable and can be restated in the discharge summary if not ruled out. MTDD
[2016-07-08 15:12] VITALS: BP 112/71
== END 2016-07-08 14:30 | disposition home or self-care (01) | DRG 446 ==
LOC: EDUNIT# → N.ED 10:15 → N.EDINP 13:23 → N.3E 14:21
PROVIDERS: ADMIT Internal Medicine; ATTEND Internal Medicine